=== PATIENT | male | born 1990 | race Caucasian/White ===

== ENCOUNTER → 2021-10-11 | Outpatient (CLI) | payer OTHER ==
[~2021-10-11] MED LIST: MOBIC15 MG PO; OMEPRAZOLE20 M1 PO
== END ==
LOC: KOH-I 14:51
DX: M54.2 Cervicalgia (principal); M54.6 Pain in thoracic spine; M54.50 Low back pain, unspecified; R05.1 Acute cough; M47.816 Spondylosis without myelopathy or radiculopathy, lumbar region
CPT/HCPCS: 71046; 72040; 72070; 72100